=== PATIENT | male | born 1980 | race Caucasian/White ===

== ENCOUNTER 2019-03-10 23:55 | Emergency (ER) | payer SELFPAY ==
[~2019-03-10] VITALS: Ht 170.2 cm; Wt 86.2 kg
[2019-03-11] MEDS ORDERED: ACETAMINOPHEN 325MG TABLET ONE (00:09)
[2019-03-11] MEDS ORDERED: KETOROLAC 30MG/ML VIAL IV STA (01:28)
[2019-03-11] MEDS ORDERED: ONDANSETRON HCL 4MG/2ML INJ IV STA (01:28)
[2019-03-11] MEDS ORDERED: SODIUM CHLORIDE 0.9% 1,000 ML IV ONE (01:28)
[2019-03-11 02:06] LABS: HEMATOCRIT. 40.7 % (42.0-52.0); HEMOGLOBIN. 14.2 g/dL (14.0-18.0); MEAN CORPUSCULAR HEMOGLOBIN 32.3 pg (28.0-32.0); MEAN CORPUSCULAR VOLUME 92.7 fL (80.0-94.0); MEAN PLATELET VOLUME 8.1 fl (7.4-10.4); PLATELET 226 x1000/uL (130-400); RED BLOOD CELL COUNT 4.39 mill/uL (4.7-6.1); RED CELL DISTRIBUTION WIDTH 13.3 % (11.6-14.6)
[2019-03-11 02:08] LABS: CHLORIDE 103 mEq/L (98-107)
[2019-03-11 03:22] LABS: PLATELET ESTIMATE NORMAL
[2019-03-11] MEDS ORDERED: CEFTRIAXONE 1 G PREMIX 50 ML IV ONE (03:45)
[2019-03-11] MEDS ORDERED: METRONIDAZOLE 500 MG PREMIX 100 ML IV ONE (03:45)
[2019-03-11 06:30] VITALS: BP 125/55
[2019-03-11 06:42] LABS: CLARITY URINE CLEAR (CLEAR); COLOR URINE DARK YELLOW (YELLOW); KETONES URINE TRACE (NEGATIVE); LEUKOCYTE ESTERASE URINE TRACE (NEGATIVE); NITRITE URINE NEGATIVE (NEGATIVE); OCCULT BLOOD URINE NEGATIVE (NEGATIVE); PH URINE 5.5 (4.5-8.0); PROTEIN URINE 1+ (NEGATIVE); SPECIFIC GRAVITY URINE 1.041 (1.005-1.030)
== END 2019-03-11 06:20 | disposition home or self-care (01) ==
LOC: ER 23:55
DX: R50.9 Fever, unspecified (principal); R10.84 Generalized abdominal pain; R19.7 Diarrhea, unspecified; R11.0 Nausea; Z98.890 Other specified postprocedural states
CPT/HCPCS: 36415; 80053; 81003; 83605; 83690; 85025; 96361; 96365; 96366; 96368; 96375; 99284; J0696; J1885; J2405; J3490; J7030; Z7610